=== PATIENT | female | born 1990 | race Two or more races ===

== ENCOUNTER → 2018-06-22 | Outpatient (CLI) | payer OTHER ==
[~2018-06-22] MED LIST: Naprosyn500 MG PO; Norco 5-325 Ta1 EACH PO; RISP1 PO; Ultram50 MG PO; Vistaril50 MG PO; Zofran Odt4 MG PO
[2018-06-23 13:49] LABS: Candida species (DNA Probe) Negative (NEGATIVE); G. vaginalis (DNA Probe) Negative (NEGATIVE); T. vaginalis (DNA Probe) Negative (NEGATIVE)
[2018-06-26 15:07] LABS: HPV 16 Negative (Negative); HPV 18 Positive (Negative); HPV OTHER HR TYPES Positive (Negative)
== END | disposition home or self-care (01) ==
LOC: LAB SHORT 19:55 → LAB 19:55
PROVIDERS: Nurse Practitioner Family
DX: Z01.419 Encounter for gynecological examination (general) (routine) without abnormal findings (principal); N89.8 Other specified noninflammatory disorders of vagina
CPT/HCPCS: 87480; 87510; 87624; 87625; 87660; G0123

== ENCOUNTER → 2018-06-30 | Outpatient (CLI) | payer OTHER ==
[2018-07-03 14:06] LABS: CHLAMYDIA TRACHOMATIS, NAA Negative (Negative); NEISSERIA GONORRHOEAE, NAA Negative (Negative)
== END | disposition home or self-care (01) ==
LOC: LAB 13:53 → LAB SHORT 13:53
PROVIDERS: Nurse Practitioner Family
DX: N89.8 Other specified noninflammatory disorders of vagina (principal)
CPT/HCPCS: 87491; 87591

== ENCOUNTER → 2018-07-14 | Outpatient (CLI) | payer OTHER | END | disposition home or self-care (01) | LOC: PLD 13:56 → LAB SHORT 13:56 | DX: D06.1 Carcinoma in situ of exocervix (principal); R87.810 Cervical high risk human papillomavirus (HPV) DNA test positive | CPT/HCPCS: 88305 ==

== ENCOUNTER 2019-03-22 10:50 | Emergency (ER) | payer OTHER ==
[~2019-03-22] VITALS: Ht 175.3 cm; Wt 136.1 kg
[2019-03-22] MEDS ORDERED: EUTHYROX75 MCG (10:56)
[2019-03-22] MEDS ORDERED: METF500 (10:56)
[2019-03-22] MEDS ORDERED: Aldactone100 MG PO (11:24)
[2019-03-22] MEDS ORDERED: Zovirax400 MG PO (11:24)
== END 2019-03-22 11:36 | disposition home or self-care (01) ==
LOC: ER 10:50
DX: B00.1 Herpesviral vesicular dermatitis (principal); R60.0 Localized edema; Z88.0 Allergy status to penicillin; Z87.891 Personal history of nicotine dependence
CPT/HCPCS: 99283

== ENCOUNTER 2020-11-22 11:36 | Inpatient (IN) | payer OTHER ==
[~2020-11-22] VITALS: Ht 172.7 cm; Wt 163.5 kg
[~2020-11-22 11:36] MED LIST changes: +Aldactone100 MG PO; +EUTHYROX75 MCG; +METF500; +Zovirax400 MG PO
[2020-11-22 12:18] LABS: PCO2 Arterial 37.1 mmHg (35-45); PO2 Arterial 54.1 mmHg (80-100); pH Blood Arterial 7.38 (7.35-7.45)
[2020-11-22 12:26] LABS: BASOPHILS ABSOLUTE AUTO 0.01 K/mm3 (0.00-0.23); BASOPHILS PERCENT AUTO 0 % (0-2); EOSINOPHILS PERCENT AUTO 0 % (0-6); Hematocrit 40.3 % (33.0-51.0); Hemoglobin 12.3 g/dL (11.5-16.0); IMMATURE GRAN ABSOLUTE AUTO 0.05 K/mm3 (0.00-0.10); IMMATURE GRAN PERCENT AUTO 1 % (0-1); LYMPHOCYTES ABSOLUTE AUTO 1.44 K/mm3 (0.84-5.20); LYMPHOCYTES PERCENT AUTO 16 % (21-46); MONOCYTES ABSOLUTE AUTO 0.76 K/mm3 (0.16-1.47); MONOCYTES PERCENT AUTO 9 % (4-13); Mean Corpuscular HGB 24.5 pg (26.0-34.0); Mean Corpuscular HGB Conc 30.5 g/dL (31.5-36.5); Mean Corpuscular Volume 80 fL (80-100); Mean Platelet Volume 9.8 fL (9.1-12.4); NEUTROPHILS ABSOLUTE AUTO 6.69 K/mm3 (1.96-9.15); NEUTROPHILS PERCENT AUTO 75 % (41-73); NRBC ABSOLUTE 0.02 K/mm3 (0.00-0.02); NRBC Auto 0.2 /100 WBC (0.0-0.2); Platelet Count 250 K/mm3 (150-400); RDW Coefficient Variation 16.1 % (11.7-14.2); RDW Standard Deviation 47.1 fL (35.1-46.3); Red Blood Cell Count 5.02 M/mm3 (3.80-5.20); White Blood Cell Count 8.95 K/mm3 (4.00-11.30)
[2020-11-22 12:43] LABS: Anion Gap 9 mmol/L (6-16); Blood Urea Nitrogen 11 mg/dL (8-24); Bun/Creatinine Ratio 11.9 (12.0-20.0); CO2, Blood 21 mmol/L (21-32); Calcium, Blood 8.4 mg/dL (8.5-10.1); Chloride, Blood 100 mmol/L (98-108); Creatinine, Blood 0.93 mg/dL (0.40-1.00); Glomerular Filtration Rate >60 (60-); Glucose, Blood 118 mg/dL (70-99); Potassium, Blood 3.9 mmol/L (3.5-5.5); Sodium, Blood 130 mmol/L (136-145)
[2020-11-22] MEDS ORDERED: Hair, Skin & N1 EACH PO (20:05)
[2020-11-23 04:49] LABS: Hematocrit 39.8 % (33.0-51.0); Hemoglobin 12.3 g/dL (11.5-16.0); Mean Corpuscular HGB 24.2 pg (26.0-34.0); Mean Corpuscular HGB Conc 30.9 g/dL (31.5-36.5); Mean Corpuscular Volume 78 fL (80-100); Mean Platelet Volume 9.5 fL (9.1-12.4); Platelet Count 284 K/mm3 (150-400); RDW Coefficient Variation 15.8 % (11.7-14.2); Red Blood Cell Count 5.08 M/mm3 (3.80-5.20); White Blood Cell Count 9.32 K/mm3 (4.00-11.30)
[2020-11-23 05:14] LABS: Alanine Aminotransfer (ALT/SGP 40 U/L (12-78); Albumin, Blood 2.6 g/dL (3.4-5.0); Albumin/Globulin Ratio 0.5 (0.8-1.8); Alk Phos 58 U/L (50-136); Anion Gap 5 mmol/L (6-16); Aspartate Aminotrans (AST/SGOT 54 U/L (12-37); Bilirubin, Total 0.3 mg/dL (0.1-1.0); Blood Urea Nitrogen 10 mg/dL (8-24); Bun/Creatinine Ratio 13.1 (12.0-20.0); CO2, Blood 27 mmol/L (21-32); Calcium, Blood 8.6 mg/dL (8.5-10.1); Chloride, Blood 107 mmol/L (98-108); Creatinine, Blood 0.76 mg/dL (0.40-1.00); Globulin, Blood 5.2 g/dL (2.2-4.0); Glomerular Filtration Rate >60 (60-); Glucose, Blood 114 mg/dL (70-99); Magnesium, Blood 2.6 mg/dL (1.6-2.4); Potassium, Blood 3.9 mmol/L (3.5-5.5); Sodium, Blood 139 mmol/L (136-145); Total Protein, Blood 7.8 g/dL (6.4-8.2)
--- NOTE | 2020-11-23 05:35 | NUR ---
SHIFT SUMMARY ASSUMED CARE OF PT AT 1900. PT IS A/OX4. HEART SOUNDS REGULAR. LUNG SOUNDS ARE VERY TIGHT AND DIMINISHED AT THE BASES, AND CRACKLES AT THE APEXS. PT IS ON AIRVO AT THE HIGHTEST SETTINGS. RT SUFGGESTED BIPAP BUT THE PT DID NOT TOLERATE WELL AND DOES NOT WANT TO TAKE MEDICATIONS FOR HER ANXIETY BECAUSE SHE WAS A PREVIOUS DRUG ADDICT. THIS NURSE TALKED ITH PT AND EDUCATED ABOUT THE PROS AND CONS OF HER DECISIONS. PT STATED " I DONT KNOW WHAT TO DO". PT REMAINED ON AIRVO T/O THE NIGHT. SATURATIONS REMAINED AT 88-91%. PT TAUGHT ABOUT PRONOING BUT CAN ONLY TOLERATE BEING ON HER SIDE, WHEN ON HER BACK, PT DESATS TO 84-85%. PT WAS A 1P SBA TO BS. URINE IS CLOUDY AND FOUL SMELLING. PT IS ON HER PERIOD. PT REPORTED DIARRHEA AND BLOOD IN HER STOOL BUT NON THIS EVENING. CALL LIGHT IN REACH, BED IN LOWEST POSTION.
--- NOTE | 2020-11-23 21:15 | NUR ---
PT CONTINUOUSLY REFUSED BIPAP EVEN AFTER EXTENSIVE EDUCATION BY RN AND RT, RN CALLED DR. DEVI AT 0910 CONCERNING POSSIBLE ANXIETY RX FOR TOLERATING BIPAP USE, 0.5MG LORAZEPAM ONE TIME ORDER PROVIDED, PT VERBALLY REFUSED BIPAP, CONTINUOUSLY ON AIRVO MASK AT 80L AND 100%, TITRATE DOWN TO 75L AND 90% FOR SEVERAL HOURS, PT RECEIVED RX PER JUN, PT USED BSC ASSIST X1 FOR LINE MANAGEMENT, CBG WDL, VSS, PT BEGAN TO DESATURATE AT SHIFT CHANGE WHEN SHE FELL ASLEEP, MAXING OUT SETTINGS HAD NO EFFECT, LORAZEPAM AND TRANSITION TO BIPAP HAD NO EFFECT, BEDSIDE REPORT GIVEN TO BHARTI GARRISON, TRANSFER ORDER TO ICU PLACED, REPORT GIVEN TO BHARTI WATT VIA PHONE AT 2045
--- NOTE | 2020-11-23 22:24 | NUR ---
PATIENT ALERT AND ORIENTED X4. AT BEGINNING OF SHIFT PT 02 SATS 83% ON AIRVO AT 80L FIO2 100%. TRIED REPOSITIONING PT TO SIDE AND PT DID NOT TOLERATE, SATS DROPPED TO 76%. SAT PT UP IN BED. GAVE PT ATIVAN, SEE EMAR TO HELP TOLERATE CPAP/BIPAP AND RESPIRATORY THERAPY PLACED PT ON CPAP 10 cmH20 AND FI02 100%, 02 SATS INCREASED TO 86-88%, RESPIRATORY RATE HIGH 45-60. MANAGER PHILOSOPHY YUSUF CALLED HOSPITALIST WHO DECIDED TO TRANSFER PT TO ICU. JENNIFER DAY SHIFT BHARTI WHO WAS HERE DURING EVENTS AND CARED FOR THE PT ON DAY SHIFT CALLED REPORT TO SHUKRI HAY AND PT TRANSFERRED TO ICU 5 @2100.
[2020-11-24 00:40] LABS: PCO2 Arterial 43.2 mmHg (35-45); PO2 Arterial 61.4 mmHg (80-100); pH Blood Arterial 7.35 (7.35-7.45)
[2020-11-24 03:37] LABS: BASOPHILS ABSOLUTE AUTO 0.01 K/mm3 (0.00-0.23); BASOPHILS PERCENT AUTO 0 % (0-2); EOSINOPHILS PERCENT AUTO 0 % (0-6); Hematocrit 37.7 % (33.0-51.0); Hemoglobin 11.4 g/dL (11.5-16.0); IMMATURE GRAN ABSOLUTE AUTO 0.05 K/mm3 (0.00-0.10); IMMATURE GRAN PERCENT AUTO 1 % (0-1); LYMPHOCYTES PERCENT AUTO 14 % (21-46); MONOCYTES ABSOLUTE AUTO 0.63 K/mm3 (0.16-1.47); MONOCYTES PERCENT AUTO 8 % (4-13); Mean Corpuscular HGB 24.1 pg (26.0-34.0); Mean Corpuscular HGB Conc 30.2 g/dL (31.5-36.5); Mean Corpuscular Volume 80 fL (80-100); Mean Platelet Volume 9.6 fL (9.1-12.4); NEUTROPHILS ABSOLUTE AUTO 6.19 K/mm3 (1.96-9.15); NEUTROPHILS PERCENT AUTO 78 % (41-73); Platelet Count 330 K/mm3 (150-400); RDW Standard Deviation 46.3 fL (35.1-46.3); Red Blood Cell Count 4.73 M/mm3 (3.80-5.20); White Blood Cell Count 7.98 K/mm3 (4.00-11.30)
[2020-11-24 03:54] LABS: Alanine Aminotransfer (ALT/SGP 40 U/L (12-78); Albumin, Blood 2.3 g/dL (3.4-5.0); Albumin/Globulin Ratio 0.5 (0.8-1.8); Alk Phos 50 U/L (50-136); Anion Gap 5 mmol/L (6-16); Aspartate Aminotrans (AST/SGOT 40 U/L (12-37); Bilirubin, Total 0.3 mg/dL (0.1-1.0); Blood Urea Nitrogen 12 mg/dL (8-24); Bun/Creatinine Ratio 17.5 (12.0-20.0); CO2, Blood 25 mmol/L (21-32); Calcium, Blood 8.4 mg/dL (8.5-10.1); Chloride, Blood 112 mmol/L (98-108); Creatinine, Blood 0.69 mg/dL (0.40-1.00); Globulin, Blood 4.7 g/dL (2.2-4.0); Glomerular Filtration Rate >60 (60-); Glucose, Blood 146 mg/dL (70-99); Magnesium, Blood 2.7 mg/dL (1.6-2.4); Phosphorus, Blood 3.1 mg/dL (2.5-4.9); Potassium, Blood 4.1 mmol/L (3.5-5.5); Sodium, Blood 142 mmol/L (136-145)
[2020-11-24 04:16] LABS: Source, Urine Catheter
[2020-11-24 04:18] LABS: Bilirubin, Urine Neg (Neg); Blood, Urine 3+ (Neg); Glucose Qualitative, Urine Neg (Neg); Ketones, Urine 3+ (Neg); Leukocyte Esterase, Urine Neg (Neg); Nitrite, Urine Neg (Neg); Protein, Urine 1+ (Neg); Urobilinogen, Urine NORM (Normal); pH, Urine 6.5 (5.0-8.0)
[2020-11-24 04:23] LABS: Color, Urine Yellow (P-Yellow)
[2020-11-24 04:24] LABS: Appearance, Urine Clear (Clear); Bacteria Few /hpf; Hyaline Casts 0-2 /lpf (0-2); Red Blood Cells, Urine Rare /hpf (0-2); Squamous Epithelial Cells Rare /hpf (Few); Transitional Epithelial Cells Few /hpf (0-Rare); White Blood Cells, Urine Rare /hpf (0-5)
--- NOTE | 2020-11-24 06:27 | NUR ---
SHIFT SUMMARY PT ARRIVED TO ICU VIA GURNEY FROM PCU AROUND 2100. PT MOVED TO ICU BED VIA SLIDER SHEET. UPON ARRIVAL PT WAS FULLY ALERT, DYSPNEIC BUT TALKING TO STAFF. ON BIPAP 10/100% c O2 SATS RANGING FROM 87-90% & RR IN THE 30'S-40'S. PT APPEARED VERY ANXIOUS. RT IN THE ROOM UPON ARRIVAL SETTING UP FOR INTUBATION. DR. HORNE ALSO PREPARING FOR INTUBATION OUTSIDE OF THE ROOM. PT ONLY HAD ONE IV TO LW WHICH IS DID NOT FLOW WELL, 20 GA IV ESTABLISHED IN RAC, RANDELL BACK BLOOD AND FLUSHED WELL. THIS IV USED FOR MEDS FOR INTUBATION. NECESSITY FOR INTUBATION WELL PROCEDURE EXPLAINED TO PT BY THIS NURSE AND DR. HORNE. PT UNDERSTANDING. PT MEDICATED c VERSED, PROPOFOL, AND PARALYTICS, SEE NOTE FOR INTUBATION. POST INTUBATION PT PLACED ON FENTANYL FUND RAISER @ 100MCG/HR, VERSED GTT @ 2MG/HR, PROPOFOL @ 50MCG/KG/MIN, AND NIMBEX @ 1MCG/KG/MIN, PRECEDEX INITIALLY ON SB, SEE FLOWSHEET FOR TITRATION. CENTRAL LINE ESTABLISHED BY DR. HORNE AFTER INTUBATION, OG TUBE PLACED, C-XRAY CONFIMRED PLACEMENT OF THE ABOVE, CONFIRMED BY DR HORNE. OG ON LIS. TEMP KWOK CATH ESTABLISHED, DRAINING BONNIE URINE, PT ON MENSES, U-PREG AND URINALYSIS SENT TO LAB. SEDATION AND VENT SETTINGS BEING TITRATED CURRENTLY. WILL CONTINUE TO MONITOR.
--- NOTE | 2020-11-24 10:32 | NUR ---
PT IS ON PARALYITIC AND SEDATION, SEE TITRATION. PT NOT RESPONDING TO T.O.F. UNTIL AFTER NIMBIX GTT D/C., THEN / OBSERVED. VENT SETTINGS NOTED. SATS NOTED TO BE LABILE WITH MOVING AND FIO2 REQUIREMENTS INCREASED FROM 60% PRE-TURN STATUS. AC 20, 400, 70%, 10 PEEP. SEE IV GTT ON FLOW SHEET AND TITRATION. OG TO LIS WITH NO OUTPUT OR T.F. CURRENTLY. IV SITES INTACT.
--- NOTE | 2020-11-24 18:32 | NUR ---
PT REMAINS SEDATED ON PRECEDEX, PROPOFOL, FENTANYL. SATS NOTED 92-3 ON 55%. VSS. PT WILL QUICKLY COME OUT FROM UNDER SEDATION. PT CONT. TO DESAT TO MID 80 RANGE WITH REPOSITIONING AND SLOW TO RECOVER. PT REMAINS RESTRAINED. I/O NOTED.
--- NOTE | 2020-11-24 22:00 | NUR ---
REMAINING VERSED DRIP FROM PREVIOUS SHIFT WASTED WITH JOAO NUR
--- NOTE | 2020-11-25 02:29 | NUR ---
COMPLETED THE REST OF PATIENT BATH AROUND 0100. PATIENT BARELY STIMULATED AND STARTED COUGHING AND DESATING TO LOW 70S RATHER QUICKLY. ONLY THE PADS UNDERNEATH WERE CHANGED. PATIENT HELD IN 70S FOR A PERIOD OF TIME WITH AN ABUNDANVE OF 100% HITS. IT TOOK OVER 45MINS FOR PATIENT TO RECOVER. PATIENT PLACED ON 100% AND STILL SATS ARE 94%. SPOKE WITH RT. WILL CONTINUE TO ASSESS
[2020-11-25 03:31] LABS: PCO2 Arterial 41.6 mmHg (35-45); PO2 Arterial 58.5 mmHg (80-100); pH Blood Arterial 7.42 (7.35-7.45)
[2020-11-25 04:33] LABS: BASOPHILS ABSOLUTE AUTO 0.01 K/mm3 (0.00-0.23); BASOPHILS PERCENT AUTO 0 % (0-2); EOSINOPHILS PERCENT AUTO 0 % (0-6); Hematocrit 36.3 % (33.0-51.0); IMMATURE GRAN ABSOLUTE AUTO 0.15 K/mm3 (0.00-0.10); IMMATURE GRAN PERCENT AUTO 2 % (0-1); LYMPHOCYTES ABSOLUTE AUTO 3.38 K/mm3 (0.84-5.20); LYMPHOCYTES PERCENT AUTO 33 % (21-46); MONOCYTES ABSOLUTE AUTO 0.82 K/mm3 (0.16-1.47); MONOCYTES PERCENT AUTO 8 % (4-13); Mean Corpuscular HGB 24.5 pg (26.0-34.0); Mean Corpuscular HGB Conc 30.3 g/dL (31.5-36.5); Mean Corpuscular Volume 81 fL (80-100); Mean Platelet Volume 9.8 fL (9.1-12.4); NEUTROPHILS ABSOLUTE AUTO 5.96 K/mm3 (1.96-9.15); NEUTROPHILS PERCENT AUTO 58 % (41-73); Platelet Count 396 K/mm3 (150-400); RDW Coefficient Variation 16.2 % (11.7-14.2); RDW Standard Deviation 47.9 fL (35.1-46.3); Red Blood Cell Count 4.49 M/mm3 (3.80-5.20); White Blood Cell Count 10.32 K/mm3 (4.00-11.30)
[2020-11-25 04:50] LABS: Alanine Aminotransfer (ALT/SGP 30 U/L (12-78); Albumin, Blood 2.1 g/dL (3.4-5.0); Albumin/Globulin Ratio 0.5 (0.8-1.8); Alk Phos 50 U/L (50-136); Anion Gap 4 mmol/L (6-16); Aspartate Aminotrans (AST/SGOT 27 U/L (12-37); Bilirubin, Total 0.4 mg/dL (0.1-1.0); Blood Urea Nitrogen 12 mg/dL (8-24); Bun/Creatinine Ratio 15.7 (12.0-20.0); CO2, Blood 27 mmol/L (21-32); Calcium, Blood 8.2 mg/dL (8.5-10.1); Chloride, Blood 115 mmol/L (98-108); Creatinine, Blood 0.76 mg/dL (0.40-1.00); Globulin, Blood 4.4 g/dL (2.2-4.0); Glomerular Filtration Rate >60 (60-); Glucose, Blood 134 mg/dL (70-99); Magnesium, Blood 2.4 mg/dL (1.6-2.4); Phosphorus, Blood 2.1 mg/dL (2.5-4.9); Potassium, Blood 3.8 mmol/L (3.5-5.5); Sodium, Blood 146 mmol/L (136-145); Total Protein, Blood 6.5 g/dL (6.4-8.2); Triglycerides 215 mg/dL (30-140)
--- NOTE | 2020-11-25 06:15 | NUR ---
END OF SHIFT SUMMARY: PATIENT TOLERATED HER 55% UNTIL WE DID A REALLY GOOD TURN TO BATHE HER BACK SIDE AND HAS HAD DIFFICULTY RECOVERING SINCE. SHE HAS BEEN ON 100% AND PER DR. LEGER, WE BUMPED HER PEEP THIS MORNING TO 12 FROM 10 DUE TO HER HOLDING SATS JESSE 87% OM PULSE OX. PLAN OF ACTION IS TO START NIMBEX AND POTENTIALLY PRONE IF SHE DOES NOT IMPROVE. PATIENT STARTS COUGHING AGGRESSIVELY AND BECOMES PRETTY AWAKE UPON STIMULATION. PROPOFOL NOW AT 70, FENTANYL STILL INFUSING, AND PRECEDEX IS AT 1.2 GREAT URINE OUTPUT. TUBE FEEDS AT GOAL.
--- NOTE | 2020-11-25 07:40 | NUR ---
ASSUMED CARE REPORT FROM NAZARIO HAY AT 0700. PT INTUBATED AND SEDATED. VENT SETTINGS AC 20/400/12/100%. LUNGS COARSE IN UPPER LOBES, DECREASED IN BASES. SMALL AMOUNT OF THICK HELLER SECRETIONS THROUGH ETT. PT DESATS c MINIMAL MOVEMENT. OCCASIONAL COUGHING EPISODES c DESATURATIONS. NO SWALLOW/GAG REFLEX. PROPOFOL AND PRECEDEX GTT FOR SEDATION. RASS -4 TO DECREASE COUGHING EPISODES. NO RESPONSE TO PAINFUL STIMULI. ABD OBESE, SOFT, NON TENDER. BT HYPOACTIVE. TUBE FEEDS AT GOAL, 50 ML/HR c 30 ML FLUSH q4 HR. 220 ML RESIDUALS THIS AM, REFED. KWOK PATENT, DRAINING RED CLOUDY URINE c SEDIMENT TO GRAVITY. BP STABLE, NSR, RATE 70'S. CVC TO [facility], DRESSING C/D/I. WILL CONTINUE TO MONITOR.
[2020-11-25 16:16] LABS: SARS-Cov-2 (COVID-19) PCR, MMC POSITIVE (NEGATIVE)
== END 2020-11-25 19:40 | disposition short-term general hospital (02) | DRG 208 ==
LOC: ER 11:36 → ICUE 13:31 → ERHOLD 13:31 → PCU 18:45 → ICUE 11-23 20:50
PROVIDERS: Family Medicine; Internal Medicine; Internal Medicine Critical Care Medicine; Internal Medicine Pulmonary Disease; Student in an Organized Health Care Education/Training Program; ADMIT Internal Medicine
PROC: XW033E5 Introduction of Remdesivir Anti-infective into Peripheral Vein, Percutaneous Approach, New Technology Group 5 (ICD-10-PCS; 2020-11-22)
PROC: 3E0333Z Introduction of Anti-inflammatory into Peripheral Vein, Percutaneous Approach (ICD-10-PCS; 2020-11-22)
PROC: 5A09457 Assistance with Respiratory Ventilation, 24-96 Consecutive Hours, Continuous Positive Airway Pressure (ICD-10-PCS; 2020-11-22)
PROC: 8E0ZXY6 Isolation (ICD-10-PCS; 2020-11-22)
PROC: 0BH18EZ Insertion of Endotracheal Airway into Trachea, Via Natural or Artificial Opening Endoscopic (ICD-10-PCS; principal; 2020-11-23)
PROC: 5A1945Z Respiratory Ventilation, 24-96 Consecutive Hours (ICD-10-PCS; 2020-11-23)
PROC: 02HV33Z Insertion of Infusion Device into Superior Vena Cava, Percutaneous Approach (ICD-10-PCS; 2020-11-23)
DX: U07.1 COVID-19 (principal); J12.82 Pneumonia due to coronavirus disease 2019; J80 Acute respiratory distress syndrome; Z68.43 Body mass index [BMI] 50.0-59.9, adult; F31.9 Bipolar disorder, unspecified; E66.01 Morbid (severe) obesity due to excess calories; G43.909 Migraine, unspecified, not intractable, without status migrainosus; E03.9 Hypothyroidism, unspecified; E11.9 Type 2 diabetes mellitus without complications; Z88.0 Allergy status to penicillin; Z90.721 Acquired absence of ovaries, unilateral; Z87.891 Personal history of nicotine dependence; Z79.84 Long term (current) use of oral hypoglycemic drugs; Z79.899 Other long term (current) drug therapy; Z78.1 Physical restraint status
CPT/HCPCS: 31500; 36415; 36556; 36600; 51703; 71045; 80048; 80053; 81001; 81025; 82803; 82947; 83605; 83735; 83880; 84100; 84478; 84484; 85025; 85027; 85379; 85651; 86141; 87070; 87205; 93005; 93010; 93306; 94002; 94003; 94640; 94660; 94762; 96374; 96375; 99285-25; A9270; C1751; C9113; J0330; J1100; J1650; J1940; J2060; J2250; J2704; J3010; J7030; J7050; J7060; U0004

== ENCOUNTER 2024-06-22 22:18 | Emergency (ER) | payer BC ==
[~2024-06-22] VITALS: Ht 172.7 cm; Wt 127.0 kg
[~2024-06-22 22:18] MED LIST changes: +Hair, Skin & N1 EACH PO
[2024-06-22] MEDS ORDERED: NS 1,000 ML IV SCH (23:50)
[2024-06-23 00:20] LABS: BASOPHILS ABSOLUTE AUTO 0.06 K/mm3 (0.00-0.23); BASOPHILS PERCENT AUTO 1 % (0-2); EOSINOPHILS PERCENT AUTO 4 % (0-6); Hematocrit 40.2 % (33.0-51.0); Hemoglobin 13.5 g/dL (11.5-16.0); IMMATURE GRAN ABSOLUTE AUTO 0.02 K/mm3 (0.00-0.10); IMMATURE GRAN PERCENT AUTO 0 % (0-1); LYMPHOCYTES ABSOLUTE AUTO 2.37 K/mm3 (0.84-5.20); LYMPHOCYTES PERCENT AUTO 48 % (21-46); MONOCYTES ABSOLUTE AUTO 0.44 K/mm3 (0.16-1.47); MONOCYTES PERCENT AUTO 9 % (4-13); Mean Corpuscular HGB 29.2 pg (26.0-34.0); Mean Corpuscular HGB Conc 33.6 g/dL (31.5-36.5); Mean Corpuscular Volume 87 fL (80-100); Mean Platelet Volume 9.2 fL (9.1-12.4); NEUTROPHILS ABSOLUTE AUTO 1.88 K/mm3 (1.96-9.15); NEUTROPHILS PERCENT AUTO 38 % (41-73); Platelet Count 260 K/mm3 (150-400); RDW Coefficient Variation 15.8 % (11.7-14.2); RDW Standard Deviation 48.9 fL (35.1-46.3); Red Blood Cell Count 4.63 M/mm3 (3.80-5.20); White Blood Cell Count 4.97 K/mm3 (4.00-11.30)
[2024-06-23 00:37] LABS: Albumin, Blood 2.9 g/dL (3.4-5.0); Albumin/Globulin Ratio 0.7 (0.8-1.8); Bilirubin, Direct 0.1 mg/dL (0.0-0.3); Bilirubin, Indirect 0.2 mg/dL (0.1-0.7); Bilirubin, Total 0.3 mg/dL (0.1-1.0); Bun/Creatinine Ratio 25.6 (12.0-20.0); Calcium, Blood 8.4 mg/dL (8.5-10.1); Creatinine, Blood 0.63 mg/dL (0.40-1.00); Globulin, Blood 3.9 g/dL (2.2-4.0); Potassium, Blood 4.1 mmol/L (3.5-5.5); Total Protein, Blood 6.8 g/dL (6.4-8.2)
[2024-06-23 01:34] LABS: CORONAVIRUS COVID-19 AG Negative (NEGATIVE); INFLUENZA A AG Negative (NEGATIVE); INFLUENZA B AG Negative (NEGATIVE)
[2024-06-23 02:21] VITALS: BP 123/109
== END 2024-06-23 02:26 | disposition home or self-care (01) ==
LOC: ER 22:18
PROVIDERS: Student in an Organized Health Care Education/Training Program
DX: K80.20 Calculus of gallbladder without cholecystitis without obstruction (principal); F17.210 Nicotine dependence, cigarettes, uncomplicated; Z91.018 Allergy to other foods; Z88.5 Allergy status to narcotic agent; Z79.899 Other long term (current) drug therapy
CPT/HCPCS: 71046; 80048; 80076; 82947; 83880; 84484; 85025; 87428-QW; 93005; 93010; 96360; 99283-25; J7030